=== PATIENT | female | born 1975 | race African-American/Black ===

== ENCOUNTER 2020-04-28 04:18 | Inpatient (IN) | payer OTHER ==
[2020-04-26 15:42] VITALS: BMI 30.4
[2020-04-28] MEDS ORDERED: DEXAMETHASONE SOD PHOSPHATE 4 MG/1 ML VIAL ONE ×2 (07:24→09:15)
[2020-04-28] MEDS ORDERED: SODIUM CHLORIDE 0.9% P/F 10 ML VIAL IJ ONE ×2 (07:24→09:15)
[2020-04-28] MEDS ORDERED: LIDOCAINE HCL/PF 2% SDV 5ML VIAL ONE ×2 (07:24→09:15)
[2020-04-28] MEDS ORDERED: fentaNYL CITRATE 250 MCG/5 ML VIAL ONE (07:24)
[2020-04-28] MEDS ORDERED: EPHEDRINE SULFATE/0.9% NACL/PF 50 MG/10 ML SYRINGE NR ONE (07:24)
[2020-04-28] MEDS ORDERED: ceFAZolin SODIUM 1 GM VIAL ONE (07:24)
[2020-04-28] MEDS ORDERED: PROPOFOL 20 ML ONE ×3 (07:25)
[2020-04-28] MEDS ORDERED: MIDAZOLAM HCL 2 MG/2 ML SINGLE DOSE VIAL ONE ×2 (07:25)
[2020-04-28] MEDS ORDERED: SUCCINYLCHOLINE CHLORIDE 200 MG/10 ML SYRINGE ONE (07:25)
[2020-04-28] MEDS ORDERED: ROCURONIUM BROMIDE 50 MG/5 ML SYRINGE ONE (07:25)
[2020-04-28] MEDS ORDERED: SEVOFLURANE 250 ML BTL ONE (07:29)
[2020-04-28] MEDS ORDERED: BUPIVACAINE HCL/PF 0.25% (2.5MG/ML) 10 ML VIAL ONE (07:34)
[2020-04-28] MEDS ORDERED: LIDOCAINE HCL 1%, 10 MG/ML (20ML VIAL) ONE (07:34)
[2020-04-28] MEDS ORDERED: BUPIVACAINE LIPOSOME/PF (EXPAREL) 266 MG/20 ML VIAL ONE (07:34)
[2020-04-28] MEDS ORDERED: ONDANSETRON 4 MG/2 ML VIAL IVPUSH PRN (07:53)
[2020-04-28] MEDS ORDERED: HYDROmorphone HCl 2 MG/ML VIAL IVPUSH PRN (07:55)
[2020-04-28] MEDS ORDERED: LACTATED RINGERS SOLUTION 1,000 ML IV SCH (08:00)
[2020-04-28] MEDS ORDERED: ACETAMINOPHEN INJECTION 100 ML IVPB ONE (08:01)
--- NOTE | 2020-04-28 08:11 | HP ---
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: No: Alzheimer's, CVA, Dementia, Migraine, Multiple Sclerosis, Peripheral Neuropathy, Parkinson's, Seizure, Syncope, TIA, Vertigo, Other Cardiovascular: No: AFIB, Aneurysm, Aortic Insufficiency, Aortic Stenosis, CAD, CHF, Deep Vein Thrombosis, HTN, Hyperlipdemia, [place], Mitral Insufficiency, Mitral Stenosis, Murmur, Pulmonary Hypertension, Other Pulmonary: No: Asthma, Bronchitis, Cancer, COPD, O2 Dependent, Pneumonia, Previously Intubated, Pulmonary Embolus, Pulmonary Fibrosis, Sleep Apnea, Other Gastrointestinal: No: Ascites, Cancer, Constipation, Crohn's Disease, Diverticulitis, Diverticulosis, Esophageal Varices, Gastritis, GERD, GI Bleed, Hemorrhoids, Hiatal Hernia, Inflamatory Bowel Disease, Irritable Bowel Disease, Pancreatitis, Peptic Ulcer Disease, Ulcerative Colitis, Other Hepatobiliary: No: Cirrhosis, Cholelithiasis, Cholecystitis, Choledocholithiasis, Hepatitis A, Hepatitis B, Hepatitis C, Other Renal/: No: Renal Failure, Renal Inusuff, BPH, Cancer, Hematuria, Hemodialysis, Neurogenic Bladder, Renal Calculi, UTI, Other Reproductive: No: Ectopic , Endometriosis, Fibroids, PID, Polycystic Ovary Syndrome, Postmenopausal, Other ...LMP: 04/06/20 ...: No Heme/Onc: No: Anemia, B12 Deficiency, Bleeding Disorder, Cancer, Current Chemotherapy, Current Radiation Therapy, Hemochromatosis, Hypercoaguable State, Myeloproliferative Synd, Sickle Cell Disease, Sickle Cell Trait, Thrombo cytopenia, Other Infectious Disease: No: AIDS, C-Diff, Herpes Zoster, HIV, MRSA, STD's, Tuberculosis, VREF, Other Psych: No: Addictions, Anxiety, Bipolar, Depression, Panic, Psychosis, Schizophrenia, Other Musculoskeletal: No: Bursitis, Chronic low back pain, Hemiparesis, Hemiplegia, Osteoarthritis, Paraplegia, Other Rheumatology: No: Fibromyalgia, Gout, Lupus, Rheumatoid Arthritis, Sarcoidosis, Vasculitis, Other ENT: No: Allergic Rhinitis, Sinusitis, Other Endocrine: No: Sage's Disease, Leesa's Disease, Diabetes Insipidus, Diabetes Mellitus, Hyperparathyroidism, Hyperthyroidism, Hypothyroidism, Osteopenia, SIADH, Other Dermatology: No: Basal Cell, Cellulitis, Eczema, Melanoma, Psoriasis, Squamous Cell, Other - Past Surgical History Past Surgical History: No: None, AAA Repair, AICD, Amputation, Appendectomy, Arthrosocopy, AV Fistula/Graft, Bariatric Surgery, Breast Biopsy, Bypass, CABG, Carotid Endarterectomy, Cataract Removal, Cholecystectomy, Colectomy, Colonoscopy, Colostomy, Craniotomy, , Cystectomy, Hernia Repair, Hysterectomy, Ileal Conduit, Ileosotomy, Joint Replacement, Kidney Transplant, Laminectomy, Liver Transplant, Mastectomy, Nephrectomy, Oopherectomy, Orchiectomy, Permanent Pacemaker, Prostatectomy, Splenectomy, Stent, Thoracotomy, TURP, Tonsillectomy, Tubal Ligation, Upper Endoscopy, Valve Replacement, Vasectomy, Vein Stripping/Ligation - Advance Directives Advance Directives: Yes: Living Will - Smoking History Smoking history: Never smoked - Alcohol/Substance Use Hx Alcohol Use: No History of Substance Use: reports: None - Social History Usual Living Arrangement: Yes: With Significant Other Do you think of yourself as: Straight/Heterosexual ADL: Independent History of Recent Travel: No Home Medications - Allergies Allergies/Adverse Reactions: Allergies Allergy/AdvReac Type Severity Reaction Status Date / Time No Known Allergies Allergy Verified 04/28/20 07:16 - Home Medications Home Medications: Ambulatory Orders propRANOLol HCL [Inderal Xl] 120 mg PO DAILY 04/26/20 Family Medical History Family History: Denies Review of Systems - Review of Systems Constitutional: reports: No Symptoms Eyes: reports: No Symptoms HENT: reports: No Symptoms Neck: reports: No Symptoms Cardiovascular: reports: No Symptoms Respiratory: reports: No Symptoms Gastrointestinal: reports: No Symptoms Genitourinary: reports: No Symptoms Breasts: reports: No Symptoms Reported Musculoskeletal: reports: No Symptoms Integumentary: reports: No Symptoms Neurological: reports: No Symptoms Endocrine: reports: No Symptoms Hematology/Lymphatic: reports: No Symptoms Psychiatric: reports: No Symptoms Physical Examination Vital Signs: Vital Signs Temperature 98.0 F 04/28/20 07:14 Pulse Rate 83 04/28/20 07:14 Respiratory Rate 04/28/20 07:14 Blood Pressure 149/93 04/28/20 07:14 O2 Sat by Pulse Oximetry (%) 100 04/28/20 07:14 Constitutional: Yes: Well Nourished, No Distress, Calm Eyes: Yes: WNL, Conjunctiva Clear, EOM Intact HENT: Yes: WNL, Atraumatic, Normocephalic Neck: Yes: WNL, Supple, Trachea Midline Cardiovascular: Yes: WNL, Regular Rate and Rhythm Respiratory: Yes: WNL, Regular, CTA Bilaterally Gastrointestinal: Yes: WNL, Normal Bowel Sounds, Soft ...Rectal Exam: Yes: WNL Renal/: Yes: WNL Breast(s): Yes: WNL Musculoskeletal: Yes: WNL Extremities: Yes: WNL Edema: No Peripheral Pulses WNL: Yes Integumentary: Yes: WNL Wound/Incision: Yes: Clean/Dry, Well Approximated Neurological: Yes: WNL, Alert, Oriented ...Motor Strength: WNL Psychiatric: Yes: WNL, Alert, Oriented Assessment/Plan 12 weeks fibroids, pain,. menorrhagia fgor supracervical, possible total abd hysterectomy , bso
[2020-04-28] MEDS ORDERED: ceFAZolin 2 GRAM PREMIX BAG IVPB ONE (08:25)
[2020-04-28] MEDS ORDERED: KETOROLAC TROMETHAMINE 30 MG/1 ML VIAL ONE (09:15)
[2020-04-28] MEDS ORDERED: GLYCOPYRROLATE 0.2 MG/1 ML VIAL ONE ×2 (09:21→09:53)
[2020-04-28] MEDS ORDERED: NEOSTIGMINE METHYLSULFATE 0.5 MG/ML - 10 ML MDV ONE ×2 (09:21→09:53)
[2020-04-28] MEDS: LACTATED RINGERS SOLUTION 1,000 ML/1,000 ML INFUS.BAG IV SCH ×3 (10:11→21:15)
--- NOTE | 2020-04-28 10:17 | PN ---
Progress Note (short form) - Note Progress Note: I assisted Dr. Johnson at [facility], [facility] for the entirety of the case.
[2020-04-28] MEDS ORDERED: oxyCODONE HCL 5 MG TABLET PO PRN ×2 (10:21)
[2020-04-28] MEDS ORDERED: ACETAMINOPHEN 325 MG TABLET (FP) PO PRN (10:21)
[2020-04-28] MEDS ORDERED: IBUPROFEN 800 MG/8 ML IJ IVPB PRN (10:21)
[2020-04-28] MEDS ORDERED: HYDROmorphone HCl 2 MG/ML VIAL ONE (10:38)
[2020-04-28] MEDS: HYDROmorphone HCl 2 MG/ML VIAL IVPUSH PRN ×2 (10:40→11:00)
[2020-04-28] MEDS: HYDROmorphone *PCA* 10MG/50ML DISP.SYRIN PCA SCH (11:00)
[2020-04-28] MEDS: CEFAZOLIN 2 GM/D5W 2 GM/50 ML ML IVPB SCH (17:59)
--- NOTE | 2020-04-28 20:19 | OP ---
Operative Note - Note: Operative Date: 04/28/20 Pre-Operative Diagnosis: fibroids, menorrhagia, pelvic pain Operation: supracervical hysterectomy, r so, l salpingectomy, Findings: large 16 weeks fibroids, , r orpus lutem cyst Post-Operative Diagnosis: Same as Pre-op Surgeon: David Johnson Interior Design Coordinator: Faisal Alva Anesthesiologist/DEAN FOR STUDENT [employer]FFAIRS: Eva Wolf Anesthesia: General Estimated Blood Loss (mls): 150 (no complications ) Operative Report Dictated: Yes
[2020-04-29] MEDS: CEFAZOLIN 2 GM/D5W 2 GM/50 ML ML IVPB SCH (01:33)
--- NOTE | 2020-04-29 06:07 | PN ---
Progress Note (short form) - Note Progress Note: pod 1, doing well, no fever, tolerating diet well, will ambulate as much as possible
[2020-04-29] MEDS: LACTATED RINGERS SOLUTION 1,000 ML/1,000 ML INFUS.BAG IV SCH ×2 (06:49→14:27)
[2020-04-29 08:21] LABS: BASO % 0.2 % (0-2.0); EOS % 0.1 % (0-4.5); HEMATOCRIT 29.8 % (32.4-45.2); HEMOGLOBIN 9.8 GM/dL (10.7-15.3); LYMPH % 17.7 % (8-40); MCH 27.6 pg (25.7-33.7); MCHC 32.8 g/dl (32.0-36.0); MEAN CELL VOLUME 84.1 fl (80-96); MEAN PLT VOLUME 9.3 fl (7.5-11.1); MONO % 14.7 % (3.8-10.2); NEUT % 67.3 % (42.8-82.8); PLATELET COUNT 216 K/MM3 (134-434); RBC 3.55 M/mm3 (3.60-5.2); RDW 14.6 % (11.6-15.6); WHITE BLOOD COUNT 9.8 K/mm3 (4.0-10.0)
--- NOTE | 2020-04-29 08:42 | PN ---
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 No anesthesia complications.
[2020-04-29] MEDS ORDERED: diphenhydrAMINE HCL 25 MG CAPSULE (FP) PO PRN (15:16)
[2020-04-29] MEDS: HYDROmorphone *PCA* 10MG/50ML DISP.SYRIN PCA SCH (15:26)
[2020-04-29] MEDS ORDERED: PCA PUMP NR ONE ×2 (15:38→16:02)
[2020-04-29] MEDS: IBUPROFEN 600 MG TABLET (FP) PO PRN (15:41)
[2020-04-30] MEDS: oxyCODONE HCL 5 MG TABLET PO PRN ×2 (01:24→09:11)
[2020-04-30] MEDS ORDERED: PT OWN MED DRAWER 7, Y5N ONE (09:07)
[2020-04-30 12:43] VITALS: BP 144/94; PULSE 70; TEMP 98.3
--- NOTE | 2020-04-30 13:23 | PN ---
Progress Note (short form) - Note Progress Note: pod 2 doing well, vss, will dc pt home today , no fever
--- NOTE | 2020-04-30 13:25 | DS ---
Physical Examination Vital Signs: Vital Signs Temperature 98.3 F 04/30/20 08:45 Pulse Rate 70 04/30/20 08:45 Respiratory Rate 20 04/30/20 08:45 Blood Pressure 144/94 04/30/20 08:45 O2 Sat by Pulse Oximetry (%) 100 04/30/20 08:45 Constitutional: Yes: Well Nourished, No Distress, Calm Eyes: Yes: WNL, Conjunctiva Clear, EOM Intact HENT: Yes: WNL, Atraumatic, Normocephalic Neck: Yes: WNL, Supple, Trachea Midline Cardiovascular: Yes: WNL, Regular Rate and Rhythm Respiratory: Yes: WNL, Regular, CTA Bilaterally Gastrointestinal: Yes: WNL, Normal Bowel Sounds ...Rectal Exam: Yes: WNL Renal/: Yes: WNL Breast(s): Yes: WNL Musculoskeletal: Yes: WNL Extremities: Yes: WNL Edema: No Peripheral Pulses WNL: Yes Integumentary: Yes: WNL Wound/Incision: Yes: Clean/Dry, Well Approximated Neurological: Yes: WNL, Alert, Oriented ...Motor Strength: WNL Psychiatric: Yes: WNL, Alert, Oriented Labs: CBC, BMP 04/29/20 06:40 Discharge Summary Problems reviewed: Yes Reason For Visit: FIBROIDS Procedures: Principal: fibroids, suprcervical ysterectomy. r so Condition: Good - Instructions Diet, Activity, Other Instructions: Dr. la Quality Control Representative discharge instructions Physical activity Resume your normal everyday activity as tolerated no heavy lifting or exercise until seen by your surgeon. You may walk unlimited marcin of and climb stairs. You may resume driving the car when you feel safe and comfortable behind the wheel. No sexual activity as instructed by Dr. la . Wound care If you have a bandage, leave it on, and keep dry for 48-72 hours. After that time discard the outer bandage. If they are tapes on the skin under the out of bandage leave them in place. They will peel off in the next 7 to 10 days. Do Not Peel them off. You may shower the day after surgery. If there are tapes present on the skin, you may shower over them. Diet There are no dietary restrictions. Eat healthy, high-fiber foods. Drink 6 to 8 glasses of liquid each day. This will assist in keeping your bowels are regular. Pain management You may take Tylenol or acetaminophen or Ibuprofen (for example, Motrin, Advil etc.) from my pain prescription medication is ordered should be taken as prescribed for moderate to severe pain. Call Dr. la for any of the following: Severe pain not relieved by medication Fever of 101 or higher Excessive bleeding or drainage on dressing Inability to urinate Call the office at [phone] for an appointment in seven days. Disposition: HOME - Home Medications Comprehensive Discharge Medication List: Ambulatory Orders propRANOLol HCL [Inderal Xl] 120 mg PO DAILY 04/26/20 Prescription Drug Monitoring Program (I-STOP) results: I-STOP reviewed and no issues identified
[2020-04-30] MEDS: IBUPROFEN 600 MG TABLET (FP) PO PRN (15:28)
--- NOTE | 2020-05-03 16:31 | PATH ---
Surgical Pathology Report Patient Name: BO BURCH [facility]. Rec. #: [id number] /Age/Gender: 1975 (Age: 45) / F Account: [id number] Location: [facility] MED/SURG Taken: 04/28/2020 Received: 04/28/2020 Reported: 05/03/2020 Physicians: David Johnson MD Specimen(s) Received UTERUS, LEFT FALLOPIAN TUBE, RIGHT FALLOPIAN TUBE AND OVARY Clinical History Uterine fibroids Final Diagnosis UTERUS, LEFT FALLOPIAN TUBE, RIGHT FALLOPIAN TUBE AND OVARY, SUPRACERVICAL ABDOMINAL HYSTERECTOMY, LEFT SALPINGECTOMY, AND RIGHT SALPINGO-OOPHORECTOMY:1305 G UTERUS. LEIOMYOMA(TA), SUBSEROSAL AND INTRAMURAL. SECRETORY ENDOMETRIUM. RESIDUAL PORTION OF BENIGN ENDOCERVIX. SHORTER FALLOPIAN TUBE WITHOUT SIGNIFICANT PATHOLOGIC FINDINGS (INCLUDING FULL LUMINAL PORTION AND FIMBRIATED END). LONGER FALLOPIAN TUBE WITH PARATUBAL CYSTS AND ENDOSALPINGOSIS (INCLUDING FULL LUMINAL PORTION AND FIMBRIATED END). RIGHT OVARY WITH HEMORRHAGIC CORPUS LUTEUM CYST. Electronically Signed Amina Potter M.D. Gross Description Received in formalin labeled "uterus, left fallopian tube, right fallopian tube with ovary," is a 1305 g supracervically amputated uterus with an attached right ovary. The undesignated fallopian tubes are separately received within the same container. The uterus measures 10.2 cm from superior to inferior, 10 cm from anterior to posterior and 8 cm from left to right. There is a 14.2 x 11.7 x 8.5 cm large serosal fibroid bulging from the right cornua. The remaining serosa is arzola-donahue and smooth. The endometrial cavity measures 7 cm in length and 3.4 cm from cornu to cornu. The endometrium is arzola-red and averages 0.1 cm in thickness. The myometrium displays abundant intramural nodules, measuring up to 5.3 cm in greatest dimension. Cut surface of the large subserosal nodule as well as the intramural nodules is arzola and rubbery with whorled architecture. No areas of hemorrhage or necrosis are identified. The remaining myometrium is arzola anthony and averages 5 cm in thickness. The separately received fallopian tubes are fimbriated. The shorter tube measures 4.5 cm in length. The outer surface is donahue purple and smooth. Sectioning reveals an unremarkable lumen. The longer fallopian tube measures 5 cm in length. The outer surface is donahue purple and smooth with 2 paratubal cysts attached to the fimbria. The paratubal cysts measure 0.6 and 1.7 cm in greatest dimension. The cut surface of the longer fallopian tube reveals an unremarkable lumen. The attached right ovary measures 3.5 x 2.2 x 1.7 cm. The outer surface is arzola-brown and smooth. Sectioning reveals 2 hemorrhagic corpora lutea measuring 1.5 and 1.8 cm in greatest dimension. The remaining ovarian parenchyma is arzola-donahue and unremarkable. Baseball Glove Stuffer sections are submitted in 19 cassettes as follows: 1-cervical stump margin of resection; 8-3-rpabeulx endomyometrium; 9-7-xkjwcberd endomyometrium; 4-4-eaqsalymos nodules; 9-13-large subserosal nodule; 14-shorter fallopian tube fimbria; 15-cross sections of shorter fallopian tube; 16-longer fallopian tube fimbria and paratubal cysts; 17-cross section of longer fallopian tube; 18-hemorrhagic ovarian corpora lutea; 19-ovarian parenchyma. 04/29/2020 saudi04/29/2020
--- NOTE | 2020-05-04 11:44 | OP ---
DATE OF OPERATION: 04/28/2020 PREOPERATIVE DIAGNOSIS: Fibroid uterus, menorrhagia, and pelvic pain. POSTOPERATIVE DIAGNOSIS: Fibroid uterus, menorrhagia, and pelvic pain. Large 16-week size fibroid uterus and a right corpus luteum cyst. PROCEDURE: Supracervical hysterectomy, right salpingo-oophorectomy, left salpingectomy. SURGEON: David Johnson MD STICK ROLLER: Faisal Alva MD ANESTHESIOLOGIST: Eva Wolf MD ANESTHESIA: General anesthesia. BLOOD LOSS: 150 mL. INDICATION: This is a 45-year-old female patient with history of 16-week size fibroid uterus and menorrhagia and chronic pelvic pain. Patient has been thinking about having hysterectomy for many, many years, finally agrees, finally insists, and patient had enough pain and cannot take this menorrhagia anymore, so patient has been consulted, and the patient understood there is no more baby in the future, and patient understood that, and patient wanted to save 1 ovary for just preventative menopausal symptoms. All the risks, benefits, and alternatives were explained to the patient. Patient understood that patient wanted to save some cervix to prevent a prolapse, so patient agreed. Patient was taken to the OR and signed a consent for removing the uterus in layman's terms. DESCRIPTION OF PROCEDURE: Patient was placed on operating table in supine position. After general anesthesia was obtained, the patient's abdomen and pelvis were prepped and draped in the usual sterile manner. Pfannenstiel was made. Incision was made through skin and subcutaneous tissue until the fascia was nicked in the midline. The fascia extended bilaterally. Intraperitoneal cavity was entered, and at this time we placed the Rei retractors, and abdominal cavity was opened and uterus was 16-week size uterus. We removed the uterus outside of abdominal cavity, and multiple large fibroids 16-week size were seen, so we proceeded to abdominal hysterectomy in the usual fashion. Both round ligaments were grasped and doubly transected and suture ligated, and broad ligament was dissected all the way down to the bladder reflection, and the broad ligament was dissected down the bladder reflections. Then right salpingo-oophorectomy was performed, and infundibulopelvic ligament was doubly transected and suture ligated with good hemostasis, and the uterine artery was skeletonized on both sides, and the uterine artery was doubly transected and suture ligated with Vicryl sutures, good hemostasis. Then with Paco clamp, the cardinal ligament was doubly transected and suture ligated all the way down to half the cervix area. Good hemostasis was obtained. The uterus and half the cervix were removed. Then the cardinal ligaments with sutures and transected together, and the cuff of the cervix was sutured with [id number] stitch of Vicryl sutures. Good hemostasis. Again, supracervical hysterectomy was performed and no complications. Patient tolerated the procedure well, and left salpingectomy was performed which saved the left ovary for the patient. Other than that, no complications, and good hemostasis. Blood loss of 150 mL and peritoneum was closed then fascia was closed. Skin was closed and transferred to recovery room in stable condition, draining clear urine. Blood loss 150 mL. MD FAISAL MACHADO/[id number]
== END 2020-04-30 16:28 | disposition home or self-care (01) | DRG 743 ==
LOC: J2C 04:18 → J8W 13:17
PROVIDERS: ADMIT Obstetrics & Gynecology; ATTEND Obstetrics & Gynecology
PROC: 0UT70ZZ Resection of Bilateral Fallopian Tubes, Open Approach (ICD-10-PCS; 2020-04-28)
PROC: 0UT00ZZ Resection of Right Ovary, Open Approach (ICD-10-PCS; 2020-04-28)
PROC: 0UT90ZL Resection of Uterus, Supracervical, Open Approach (ICD-10-PCS; principal; 2020-04-28 08:00)
DX: D25.9 Leiomyoma of uterus, unspecified (principal); N92.0 Excessive and frequent menstruation with regular cycle; R10.2 Pelvic and perineal pain; N83.11 Corpus luteum cyst of right ovary
CPT/HCPCS: 36415; 84703; 85025; 86850; 86900; 86901; 86922; 88307-TC; 94010; 94760; J0131